=== PATIENT | male | born 1980 | race Asian ===

== ENCOUNTER 2017-09-15 08:55 | Emergency (ER) | payer OTHER ==
[~2017-09-15] VITALS: Ht 162.6 cm; Wt 79.4 kg
[2017-09-15] MEDS ORDERED: DIPHENHYDRAMINE HCL 25 MG CAP PO ONE (09:30)
[2017-09-15] MEDS ORDERED: FAMOTIDINE 20 MG TAB PO ONE (09:30)
[2017-09-15] MEDS ORDERED: PREDNISONE 20 MG TAB PO ONE (09:30)
[2017-09-15] MEDS ORDERED: HYDROXYZINE HCL25 MG PO (10:44)
[2017-09-15] MEDS ORDERED: PREDNISONE20 MG PO (10:44)
== END 2017-09-15 09:55 | disposition home or self-care (01) ==
LOC: FSED 08:55
DX: L50.0 Allergic urticaria (principal)
CPT/HCPCS: 99283